=== PATIENT | male | born 1940 ===

== ENCOUNTER → 2020-03-11 | Outpatient (CLI) | payer OTHER, BC ==
[~2020-03-11] VITALS: Ht 170.2 cm; Wt 74.8 kg
[~2020-03-11] MED LIST: ALEVE220 MG PO; FISH OIL 1,001000 M2 PO; OMEPRAZOLE 20 M20 M1 PO; PRAVACHOL 20 MG20 M1 PO; STOOL SOFTENER1 EAC2 PO; TEMAZEPAM15 MG PO; VITAMIN C500 M2 PO
[2020-03-11 09:19] VITALS: BP 150/82
--- NOTE | 2020-03-11 09:48 | NUR ---
Pain Clinic Assessment: 1. History of Osteoarthritis: BACK History of Rheumatoid Arthritis: Not Applicable 2. Height: 5 ft. 7 in. 170.2 cm. Weight: 165.0 lb. oz. 74.844 kg. Patient's BMI: 25.8 3. Vital Signs: BP: 150/82 Pulse: 66 Resp: 14 Temp: 02 Sat: 100 ECG Mon: 4. Pain Intensity: 3 5. Fall Risk: Dizziness: N Needs help standing or walking: N Fallen in the last 3 months: N Fall risk comments: 6. Patient on Blood Thinner: None 7. History of Hypertension: N 8. Opioid Therapy greater than 6 weeks: N Opiate Contract Signed: 9. Risk Assessment Tool Provided: LOW RISK 0/3 10. Functional Assessment Tool: 11. Recreational Drug Use: Never Drug Type: Tobacco Use: Never Smoker Tobacco Type: Amount or Packs/day: How Many Years: Alcohol Use: Yes Frequency: Weekly Quant: 1
--- NOTE | 2020-03-19 11:46 | HPC ---
[facility] [address] [place] [address] PAIN MANAGEMENT CONSULTATION Name: LUDMILA FRAGOSO Room #: REG [facility] [id number] Admission: 03/11/20 Attend Phys: Ludmila Mcintosh DO Discharge: Date of : 41 Report #: [id number] THIS REPORT FOR: cc: DANYEL HYATT Physician not on staff Ludmila Mcintosh DO ~ DATE OF SERVICE: 03/11/2020 REFERRING PHYSICIAN: Dr. Cherry Hyatt. CHIEF COMPLAINT: Axial back pain. HISTORY OF PRESENT ILLNESS: As you know, the patient is a very pleasant 80-year-old male who reports he has had longstanding low back pain that has been present for about 5 years. He denies injury or trauma. He states the pain has progressively worsened. He has been seen by other pain physicians and has undergone multiple different treatment options. Most recent treatment was medial branch block, injections and progression towards radiofrequency lesioning. The patient reports good efficacy with the medial branch blocks, but no efficacy with the lumbar medial branch radiofrequency lesioning. He sought second opinion through his primary care physician who referred the patient to our clinic to discuss options for treatment. The patient indicates today pain is continuous, constant and rhythmic. He describes the pain as shooting, aching, pulling, sharp and stabbing, places current pain score at 3/10, daily average of 5/10, worst the pain has been is 8/10. The patient states that working on his lawn gardening and landscaping tends to exacerbate symptoms; sitting, resting, repositioning and sleeping improves pain. He has been referred to our service to discuss treatment options for axial back pain due to facet arthropathy. PAST MEDICAL HISTORY: 1. Asthma. 2. Osteoarthritis. 3. Prostate cancer, status post surgery. 4. Squamous cell carcinoma. PAST SURGICAL HISTORY: 1. Right shoulder surgery. 2. Prostatectomy. 3. Excision of squamous cell carcinoma. 4. Cataract surgeries, bilateral. 5. Radiofrequency lesioning of medial branch nerves of the lumbar spine. SOCIAL HISTORY: The patient denies tobacco, IV or illicit drug use. Admits to [address] [address] PAIN MANAGEMENT CONSULTATION Name: LUDMILA FRAGOSO Room #: REG Narayan Hernandez.#: [id number] Admission: 03/11/20 Attend Phys: Ludmila Mcintosh DO Discharge: Date of : 41 Report #: [id number] occasional alcohol beverage. He is retired, he retired in 2002. He is not receiving workmen's compensation nor is he trying to obtain disability benefits. He is not in litigation in regards to pain. He is accompanied by his significant other present in room today. REVIEW OF SYSTEMS: Positive for hearing loss with tinnitus, asthma, nocturia, chronic axial back pain. All other review of systems negative per 12-point review of systems other than those listed in history of present illness. Pain impact score 25/70 indicating [id number] interference of daily activities secondary to pain. ALLERGIES: PENICILLIN. CURRENT MEDICATIONS: Naproxen 220 mg 1 tab p.r.n., Senokot S 1 tab per day, omega-3 fish oil 1 tab per day, ascorbic acid 500 mg per day, temazepam 15 mg p.o. at bedtime, pravastatin 20 mg per day, omeprazole 20 mg per day. IMAGING: None available. PQRS: The patient has osteoarthritic changes of the lumbar spine. No rheumatoid arthritis. He is placing current pain score at 2/10. He is not a fall risk nor has he had a fall in last 3 months. He is not on blood thinners. He is not treated for hypertension. He is not on chronic opioids and has a low opiate addiction potential. Pain impact score is 25/70, [id number] interference of daily activities secondary to pain. PHYSICAL EXAMINATION: VITAL SIGNS: Blood pressure 150/82, pulse 64, respiratory rate 18 and unlabored. The patient is 99% on room air. Height 5 feet 7 inches tall, weight 171.4 pounds, BMI calculated at 26.8. GENERAL: Well-developed, well-nourished, well-hydrated 80-year-old male, appears stated age. Current pain score is rated around 2/10. HEENT: Normocephalic, atraumatic. Pupils equal, round and reactive. Extraocular muscles are intact. Speech is fluent. LUNGS: Clear. No wheeze, rhonchi or rales. CARDIOVASCULAR: Regular. No appreciable gallop, no rub. ABDOMEN: Soft, nontender, nondistended. Normoactive bowel sounds. EXTREMITIES: Show no clubbing, no cyanosis, no edema. MUSCULOSKELETAL: Lower extremity strength equal and symmetrical, 5/5. Intact to light touch from L1 through S2 dermatomes. Seated straight leg raising negative. Supine straight leg raising negative. Lilli's test is negative. Modified Gaenslen's positive for axial low back pain. Ankle clonus negative. Babinski is negative. Deep tendon reflexes 2+/4 at patella and Achilles. Lumbar provocation testing including extension, rotation, lateral flexion all intensify axial back pain. No radiation of symptoms. [facility] [address] [place] [address] PAIN MANAGEMENT CONSULTATION Name: LUDMILA FRAGOSO Room #: REG AD[facility]EL Merrill#: [id number] Admission: 03/11/20 Attend Phys: Ludmila KuldipPerry Mcintosh DO Discharge: Date of : 41 Report #: [id number] ASSESSMENT: 1. Lumbosacral spondylosis without radiculopathy. 2. Facet arthropathy of the lumbar spine. 3. Chronic low back pain. 4. Chronic intractable pain. PLAN: 1. Based on today's physical exam and history the patient has provided, the descriptors the patient uses in regards to pain as well as the location of symptoms, likely source of the patient's pain is the facet joints of the lumbar spine. The patient and I discussed the findings of physical exam with him today. It does appear symptoms are related, specifically to the facet joints. There is no radicular component to his symptoms, not in the physical exam nor in the descriptors he uses in regards to pain. Unfortunately, I do not have imaging available, so I cannot comment to the level of arthropathy that is present, but given his age and the intensity of symptoms, it would at least be moderate to possibly moderate severe. The following was discussed with the patient for treatment options. 1. We discussed physical therapy, stretching exercises along with core strengthening techniques to improve axial back pain issues. We discussed adjustments in medication management to treat his ongoing symptoms. We discussed intra-articular facet injections, medial branch nerve blocks and radiofrequency lesioning as treatment course. We also discussed surgical options with the patient. After reviewing the risks and benefits of all proposed treatment options, the patient chose to move forward with adjustments in medication management and to trial medial branch blocks. 2. The patient will adjust his nabumetone treatment. I recommend he take 2 tabs twice a day to determine if his symptoms will improve. I believe that he will see good efficacy with this adjustment. If he is suffering from just strictly facet arthropathy pain, he will note no significant changes if there is any underlying neuropathic component. The patient is agreeable and we will adjust his nonsteroidal anti-inflammatories. 3. We will schedule the patient back to our clinic next week to undergo medial branch blocks of the bilateral L3, L4, L5 medial branch nerves. This will determine whether or not they are the sources of the patient's symptoms. I am aware that the patient has undergone medial branch blocks in the past with good efficacy and ultimately underwent radiofrequency lesioning of the lumbar spine, but this was done under sedation, the patient was unable to answer questions and I believe may not have provided the benefit believed as this is not the standard treatment protocol for radiofrequency lesioning. The patient should be awake, alert and oriented, so that they can answer questions appropriately as we are trying to signal the nerves and make sure that we are gaining the most efficacious benefits. The patient is agreeable to undergo medial branch blocks at our next visit with the plan that we may ultimately need to redo the [address] [address] PAIN MANAGEMENT CONSULTATION Name: LUDMILA FRAGOSO Room #: REG CLNarayan Merrill#: [id number] Admission: 03/11/20 Attend Phys: Ludmila Mcintosh DO Discharge: Date of : 41 Report #: [id number] radiofrequency lesioning. 4. We have made the patient an appointment next week to undergo the radiofrequency lesioning. We will keep you apprised of response to treatment as well as his response to the anti-inflammatory medications. 5. We wish to thank the referring physician, Dr. Hyatt, for the opportunity to see the patient in consultation. We will keep you apprised of his response to treatment as we address facet arthropathy pain. Again, we wish to thank you for the opportunity to see the patient in consultation. <ELECTRONICALLY SIGNED> By: Ludmila Mcintosh DO 03/19/20 [id number] Ludmila Mcintosh DO /nt
== END ==
LOC: PAIN 06:48
PROVIDERS: ATTEND Anesthesiology Pain Medicine
DX: M47.816 Spondylosis without myelopathy or radiculopathy, lumbar region (principal); Z79.899 Other long term (current) drug therapy

== ENCOUNTER → 2020-03-18 | Outpatient (CLI) | payer OTHER, BC ==
[~2020-03-18] VITALS: Ht 170.2 cm; Wt 77.7 kg
--- NOTE | ~2020-03-18 | HPC ---
[facility] [place] [address] PAIN MANAGEMENT CONSULTATION Name: LUDMILA FRAGOSO [facility] [id number] Admission: 03/18/20 Attend Phys: Ludmila Mcintosh DO Discharge: Date of : 42 Report #: [id number] THIS REPORT FOR: cc: DANYEL HYATT Physician not on staff Ludmila Mcintosh DO ~ CC: Cherry Mcintosh Physician staff DATE OF SERVICE: 03/18/2020 REFERRING PHYSICIAN: Dr. Cherry Hyatt. CHIEF COMPLAINT: Axial back pain. HISTORY OF PRESENT ILLNESS: As you know, the patient is a very pleasant 80-year-old male who has returned today in followup visit to undergo medial branch blocks to address the L3, L4, L5 medial branch nerves respectively in the lower lumbar spine. The patient apparently has had good efficacy with previous medial branch nerve blocks, but ultimately underwent radiofrequency lesioning without benefit. The patient was performed the procedure while sedated and the patient has no recollection of the procedure itself, which is not the standard of care. He subsequently was referred to our clinic where he was diagnosed with lumbar facet arthropathy and established today's appointment to undergo bilateral L3, L4, L5 medial branch nerve blocks. If this is successful, then move forward with radiofrequency lesioning using a standard of care. He returns today in followup visit to undergo medial branch nerve blocks bilaterally. He is placing his pain at 2/10 to 3/10. ALLERGIES: PENICILLIN. CURRENT MEDICATIONS: Senokot, naproxen, omega-3 fish oil, ascorbic acid, temazepam, pravastatin, omeprazole. SOCIAL HISTORY: The patient denies tobacco, alcohol, IV or illicit drug use. He is retired, retired in 2002. Unaccompanied today. IMAGING: No new imaging available. PQRS: The patient has known arthritic changes of the lumbar spine. No rheumatoid arthritis. Pain today is rated anywhere from 2/10 to 3/10. He is not a fall risk nor has he had a fall in last 3 months. He is not on blood thinners, nor is he treated for hypertension. He is not on chronic opioid. He has a low opiate addiction potential. Pain impact 25/70, [id number] [facility] [address] [place] [address] PAIN MANAGEMENT CONSULTATION Name: RICHMONDLUDMILA Room #: REG [facility]#: [id number] Admission: 03/18/20 Attend Phys: Ludmila Mcintosh DO Discharge: Date of : 41 Report #: [id number] interference of daily activities secondary to pain. PHYSICAL EXAMINATION: VITAL SIGNS: Blood pressure 155/75, pulse is 60, respiratory rate 18 and unlabored. The patient is 100% on room air. GENERAL: Well-developed, well-nourished, well-hydrated 80-year-old male, appears stated age, pain is rated today 2/10 to 3/10. HEENT: Normocephalic, atraumatic. Pupils equal, round and reactive. EXTREMITIES: Show no clubbing, no cyanosis, and no edema. MUSCULOSKELETAL: Lower extremity strength equal and symmetrical 5/5, intact to light touch from L1 through S2 dermatomes. Lumbar provocation testing met with increasing pain. This is noted with extension and lateral flexion as well as rotation. ASSESSMENT: 1. 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 2. Facet arthropathy of the lumbar spine. 3. Chronic low back pain. 4. Chronic intractable pain. PLAN: 1. The patient has returned today in followup visit having prepared to undergo bilateral L3, L4, L5 medial branch nerve blocks to determine if the source of his pain continues to be the medial branch blocks of the lumbar spine. The patient has agreed to undergo the procedure to determine if his symptoms can be alleviated with more aggressive treatment options. He returns today to undergo the procedure. He has been advised risks and benefits, states understood and wished to proceed. 2. No medication changes provided at today's visit. The patient will continue current medical therapy as previously prescribed. 3. We will see the patient back in followup visit for possible radiofrequency lesioning based on efficacy with today's procedure. PROCEDURE NOTE: Bilateral L3, L4, L5 medial branch nerve blocks under fluoroscopic guidance. This is the first of 2 diagnostic medial branch blocks on the right and left sides that the patient is undergoing. After obtaining written consent, the patient was taken back to the fluoroscopy suite and placed in a prone position on the fluoroscopy table with a pillow under the abdomen to decrease the lumbar lordosis. The skin overlying the lumbosacral area was prepped and draped in an aseptic fashion. The L4 transverse process corresponding the L3 medial branch nerve, L5 transverse process corresponding the L4 medial branch nerve on the right and left sides was visualized under AP fluoroscopy. The skin and subcutaneous tissue overlying the [address] [address] PAIN MANAGEMENT CONSULTATION Name: LUDMILA FRAGOSO Room #: REG AD[facility] Merrill#: [id number] Admission: 03/18/20 Attend Phys: Ludmila Mcintosh, DO Discharge: Date of : 41 Report #: [id number] target site(s) of injection was anesthetized using 2 mL of 1% lidocaine. A 22-gauge 3-1/2 inch spinal needle with a bent tip was advanced under fluoroscopic guidance using a superior to inferior and lateral to medial approach to the dorsal, superior and medial aspect of the base of the transverse process(es). The needles were then directed ventral, medial and caudad to reach the target location(s). An oblique view facilitated needle placement with properly positioned needles(s) in the middle of the "eye" of the Alex dog for the medial branch block(s). At each site the needle(s) rested on periosteum. After negative aspiration for heme or CSF, 0 mL of Omnipaque dye was injected at each site under live fluoroscopy, demonstrating absence of vascular uptake. After negative aspiration for heme or CSF, 0.5 mL of bupivacaine 0.5% was slowly injected at each site to avoid forcing the solution away from the target points(s). The needle(s) were then removed. The L5 dorsal ramus block on the right and left sides was performed using a slightly oblique approach under fluoroscopic guidance, placing the needle within the groove between the sacral site and the superior articular process of S1. The needle rested on periosteum. After negative aspiration for heme or CSF, 0.0 mL of Omnipaque dye was injected at under live fluoroscopy, demonstrating absence of vascular uptake. After negative aspiration for heme or CSF, 0.5 mL of bupivacaine 0.5% was slowly injected to avoid forcing the solution away from the target point. The needle was then removed. Sterile bandages were placed over the injection site. There were no apparent complications. The patient tolerated the procedure well and was carefully escorted to the recovery room in stable condition. The VAS was 2/10 to 3/10 before the procedure and 0/10 at 10 minutes after the procedure. After meeting discharge criteria, the patient was discharged home. By: [id number] Ludmila Mcintosh DO /nt
[2020-03-18 07:58] VITALS: BP 150/82
--- NOTE | 2020-03-18 08:04 | NUR ---
Pain Clinic Assessment: 1. History of Osteoarthritis: BACK History of Rheumatoid Arthritis: Not Applicable 2. Height: 5 ft. 7 in. 170.2 cm. Weight: 171.4 lb. oz. 77.747 kg. Patient's BMI: 26.8 3. Vital Signs: BP: 150/82 Pulse: 64 Resp: 18 Temp: 02 Sat: 99 ECG Mon: 4. Pain Intensity: 2 5. Fall Risk: Dizziness: N Needs help standing or walking: N Fallen in the last 3 months: N Fall risk comments: 6. Patient on Blood Thinner: None 7. History of Hypertension: N 8. Opioid Therapy greater than 6 weeks: N Opiate Contract Signed: 9. Risk Assessment Tool Provided: LOW RISK 0/3 10. Functional Assessment Tool: 11. Recreational Drug Use: Never Drug Type: Tobacco Use: Never Smoker Tobacco Type: Amount or Packs/day: How Many Years: Alcohol Use: Yes Frequency: Quant:
== END | disposition home or self-care (01) ==
LOC: PAIN 06:47
PROVIDERS: ATTEND Anesthesiology Pain Medicine
DX: M47.816 Spondylosis without myelopathy or radiculopathy, lumbar region (principal); M47.817 Spondylosis without myelopathy or radiculopathy, lumbosacral region; M54.5 Low back pain; G89.29 Other chronic pain; Z98.890 Other specified postprocedural states; Z79.899 Other long term (current) drug therapy; Z88.0 Allergy status to penicillin

== ENCOUNTER → 2020-03-26 | Outpatient (CLI) | payer OTHER, BC ==
[~2020-03-26] VITALS: Ht 165.1 cm; Wt 75.3 kg
--- NOTE | ~2020-03-26 | HPC ---
[facility] [place] [address] PAIN MANAGEMENT CONSULTATION Name: LUDMILA FRAGOSO [id number] Admission: 03/26/20 Attend Phys: Ludmila Mcintosh DO Discharge: Date of : 42 Report #: [id number] THIS REPORT FOR: cc: ROSETTA HYATT Physician not on staff Ludmila Mcintosh DO ~ CC: ROSETTA Mcintosh Physician staff DATE OF SERVICE: 03/26/2020 CHIEF COMPLAINT: Axial back pain. HISTORY OF PRESENT ILLNESS: As you know, the patient is a very pleasant 80-year-old male returning in followup visit to undergo right L3, L4, L5 radiofrequency lesioning of the medial branch nerves of the lumbar spine. He did very well with previous medial branch blocks with 100% improvement in overall pain. He returns today in followup visit to begin the radiofrequency lesioning process. He is placing pain today at a level of 6/10. He describes the pain as shooting, aching, pulling, stabbing. Pain is exacerbated with standing and walking, improves with sitting and rest as well as the previous medial branch nerve blocks. The patient denies any new injury or trauma. ALLERGIES: PENICILLIN. CURRENT MEDICATIONS: Senokot S, omega-3 fish oil, ascorbic acid, temazepam, pravastatin, and omeprazole. SOCIAL HISTORY: The patient denies tobacco, alcohol, IV or illicit drug use. He is retired, retired years ago, unaccompanied at today's visit. IMAGING: No new imaging available. PQRS: The patient has arthritic changes of the lumbar spine. No rheumatoid arthritis. He is placing pain intensity today at 6/10. He is not a fall risk, has not had a fall in the last 3 months. He is not on blood thinners nor is he treated for hypertension. He is not on chronic opioids and has a low opioid addiction potential. Pain impact today 25/70, [id number] interference of daily activities secondary to pain. PHYSICAL EXAMINATION: VITAL SIGNS: Blood pressure 137/85, pulse 71, respiratory rate 16 and unlabored. The patient is 97% on room air. Height 5 feet 5 inches tall, weight is 166 pounds, BMI calculated at 27.6. [facility] [address] [place] [address] PAIN MANAGEMENT CONSULTATION Name: LUDMILA FRAGOSO Room #: REG [facility].#: [id number] Admission: 03/26/20 Attend Phys: Ludmila Mcintosh DO Discharge: Date of : 41 Report #: [id number] GENERAL: Well-developed, well-nourished, well-hydrated 80-year-old male, appearing stated age. Pain is rated today at 6/10. HEENT: Normocephalic, atraumatic. Pupils are equal, round and reactive. Speech is fluent. EXTREMITIES: Show no clubbing, no cyanosis, no edema. MUSCULOSKELETAL: Seated straight leg raising negative. Supine straight leg raising negative. Lilli's test is negative. Modified Gaenslen's positive for axial low back pain. Lower extremity strength is 5/5, intact to light touch from L1 through S2 dermatomes. ASSESSMENT: 1. 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 2. Facet arthropathy of the lumbar spine. 3. Lumbar degeneration. 4. Chronic intractable pain. PLAN: 1. The patient returns today in followup visit to begin the radiofrequency lesioning process. He has chosen to undergo right L3, L4, L5 radiofrequency lesioning today. As you are aware, the patient received excellent benefit with the medial branch blocks provided at our last visit, reporting near 100% improvement in overall pain. He returns today in followup visit to undergo the radiofrequency lesioning to address his 6/10 pain. The patient has been advised the risks and benefits of the procedure, states understood and wished to proceed. 2. We will plan to see the patient back in followup visit on 04/08/2020 to undergo left L3, L4, L5 medial branch radiofrequency lesioning. At that time, we will review the efficacy of the radiofrequency lesioning today. PROCEDURE NOTE: DESCRIPTION OF PROCEDURE: Right L3, L4, L5 lumbar medial branch radiofrequency ablations under fluoroscopic guidance. The procedure was explained. Informed consent was obtained from the patient. The patient was informed of the risks of the procedure including infection, bleeding, nerve damage, failure to produce pain relief and postoperative discomfort lasting for several weeks. The patient was then taken back to fluoroscopy suite, placed in prone position with pillow under abdomen to decrease lumbar lordosis. Skin overlying lumbosacral area was then prepped and draped in aseptic fashion. AP imaging of the lumbar spine was used to identify the L2 through L5 vertebral bodies and the sacral ala. The target locations of the right side of the L4 transverse process corresponding to the L3 medial branch nerve and the L5 transverse process corresponding to the L4 medial branch nerve were established. Using a 25-gauge [address] [address] PAIN MANAGEMENT CONSULTATION Name: LUDMILA FRAGOSO Room #: REG [facility]ill#: [id number] Admission: 03/26/20 Attend Phys: Ludmila Mcintosh DO Discharge: Date of : 41 Report #: [id number] 1-1/4 inch needle, skin wheals were placed at the junction of the transverse process and the respective superior articular process using 1 mL of 1% preservative-free lidocaine at each site. We were careful to only anesthetize skin and not the deep tissue. The radiofrequency lesioning needles were then advanced under fluoroscopic guidance using a superior and inferior lateral to medial approach to the dorsal superior and medial aspect of the base of the transverse processes. [place] were then directed caudally to reach the target location. An oblique view facilitated needle placement with properly positioned needles within the middle of the "eye" of the Alex dog. At each site, needles rested on periosteum. Touching bone assured the needles were not placed too deeply. Radiofrequency lesioning of the L5 medial branch nerve on the right side was performed using a superior to inferior, lateral to medial approach under fluoroscopic guidance, placing the needle within the groove between the sacral ala and the superior articular process of S1. Needle rested on periosteum. Stimulation was performed at each level once the cannulas were in position. Sensory stimulation was performed at 0.4, 0.4 and 0.4 with impedance of 193, 234 and 163 at 50 Hz for the L3, L4, L5 medial branch nerves respectively. Good stimulation of the lumbar and buttock region was elicited indicating correct alignment with the posterior primary ramus. Absence of lower motor fasciculation was noted at 3 volts 2 Hz stimulation when testing the L3, L4, L5 medial branch nerves on the right respectively. Following this affirmation of disassociation between sensory and motor stimulation, negative aspiration was noted at each level. After negative aspiration was noted, 1 mL of bupivacaine 0.5% was injected at each site. After a 90-second delay, lesions were performed at temperature of 80 degrees Celsius for a total of 90 seconds. After the needle tips had cooled, 1 mL of a solution containing 1 mL 40 mg per mL, 40 mg total triamcinolone along with 5 mL bupivacaine 0.5% injected at each site. Chatom were retracted longterm, flushed with 1 mL of 1% lidocaine and removed. Sterile bandage was placed over injection site. The patient was noted to be able to move all 4 extremities purposefully after procedure. The patient tolerated the procedure well, carefully escorted to recovery room in stable condition. No apparent complications. After meeting discharge criteria, the patient was discharged home. By: [id number] Ludmila Mcintosh DO /nt
[2020-03-26 12:35] VITALS: BP 137/85
--- NOTE | 2020-03-26 12:44 | NUR ---
Pain Clinic Assessment: 1. History of Osteoarthritis: BACK History of Rheumatoid Arthritis: Not Applicable 2. Height: 5 ft. 5 in. 165.1 cm. Weight: 166.0 lb. oz. 75.297 kg. Patient's BMI: 27.6 3. Vital Signs: BP: 137/85 Pulse: 71 Resp: 16 Temp: 02 Sat: 97 ECG Mon: 4. Pain Intensity: 6 5. Fall Risk: Dizziness: N Needs help standing or walking: N Fallen in the last 3 months: N Fall risk comments: 6. Patient on Blood Thinner: None 7. History of Hypertension: N 8. Opioid Therapy greater than 6 weeks: N Opiate Contract Signed: 9. Risk Assessment Tool Provided: LOW RISK 0 10. Functional Assessment Tool: 11. Recreational Drug Use: Never Drug Type: Tobacco Use: Never Smoker Tobacco Type: Amount or Packs/day: How Many Years: Alcohol Use: Yes Frequency: Quant:
== END | disposition home or self-care (01) ==
LOC: PAIN 07:06
PROVIDERS: ATTEND Anesthesiology Pain Medicine
DX: M47.817 Spondylosis without myelopathy or radiculopathy, lumbosacral region (principal); M47.816 Spondylosis without myelopathy or radiculopathy, lumbar region; M51.36 Other intervertebral disc degeneration, lumbar region; G89.29 Other chronic pain; Z98.890 Other specified postprocedural states; Z79.899 Other long term (current) drug therapy; Z88.0 Allergy status to penicillin

== ENCOUNTER → 2020-04-08 | Outpatient (CLI) | payer OTHER, BC ==
[~2020-04-08] VITALS: Ht 165.1 cm; Wt 75.1 kg
--- NOTE | ~2020-04-08 | HPC ---
[address] [address] PAIN MANAGEMENT CONSULTATION Name: LUDMILA FRAGOSO Room #: REG [facility].#: [id number] Admission: 04/08/20 Attend Phys: Ludmila Mcintosh DO Discharge: Date of : 41 Report #: [id number] THIS REPORT FOR: cc: ROSETTA HYATT Physician not on staff Ludmila Mcintosh DO ~ CC: ROSETTA Mcintosh Physician staff DATE OF SERVICE: 04/08/2020 REFERRING PHYSICIAN: Dr. Cherry Hyatt. CHIEF COMPLAINT: Axial back pain. HISTORY OF PRESENT ILLNESS: As you know, the patient is a very pleasant 80-year-old male who returns today in followup visit having noted excellent improvement in his lumbar pain after undergoing radiofrequency lesioning of the right L3, L4 and L5 medial branch nerves. He is now placing pain score no greater than 2/10. He is extremely pleased with response to the radiofrequency lesioning performed on the right returning today to complete the series to undergo left L3, L4, and L5 radiofrequency lesioning to complete the process of radiofrequency lesioning of the medial branch nerves of the lower lumbar spine. The patient has had no changes in his medical history since our last visit. No new injury or trauma. His pain has improved significantly from 5/10 to now 1-2/10 maximum. ALLERGIES: PENICILLIN. CURRENT MEDICATIONS: Senokot-S, omega-3 fish oil, ascorbic acid, temazepam, pravastatin, and omeprazole. SOCIAL HISTORY: The patient denies tobacco, alcohol, IV or illicit drug use. He is retired, retired years ago, unaccompanied today. IMAGING: No new imaging available. PQRS: The patient has known arthritic changes of the lumbar spine. No rheumatoid arthritis. Pain intensity is now rated 1-2/10. He is not at fall risk, has not had a fall in last 3 months. He is not on blood thinners, nor is he treated for hypertension. He is not on chronic opioids, has a low opioid addiction potential. Pain impact today 25, [id number] interference of daily activities secondary to pain. PHYSICAL EXAMINATION: [facility] [address] [place] [address] PAIN MANAGEMENT CONSULTATION Name: LUDMILA FRAGOSO [facility] [id number] Admission: 04/08/20 Attend Phys: Ludmila Mcintosh DO Discharge: Date of : 41 Report #: [id number] VITAL SIGNS: Blood pressure 145/92, pulse is 51, respiratory rate 16 and unlabored. The patient is 100% on room air. Height 5 feet 5 inches tall, weight 165.6 pounds, BMI calculated 27.6. GENERAL: Well-developed, well-nourished, well-hydrated 80-year-old male appearing stated age, pain is rated of 1-2/10. HEENT: Normocephalic and atraumatic. Pupils are equal, round and reactive. Speech is fluent. EXTREMITIES: Show no clubbing, no cyanosis, no edema. MUSCULOSKELETAL: Lower extremity strength remains symmetrical 5/5. Muscle bulk and tone is symmetrical comparing left lower extremity to right. He is intact to light touch from L1 through S2 dermatomes. Lumbar provocation testing including extension, rotation, lateral flexion all provided only minimal pain over the left low back. No pain over the right. ASSESSMENT: 1. Lumbosacral spondylosis without radiculopathy. 2. Facet arthropathy of the lumbar spine. 3. Chronic low back pain. 4. Chronic intractable pain. PLAN: 1. The patient returns today in followup visit to complete radiofrequency lesioning of the medial branch nerves of the lumbar spine. He has reported excellent benefit with previous series addressing the right L3, L4, and L5 medial branch nerves. He returns today to undergo left L3, L4, and L5 radiofrequency lesioning. He has been advised risks and benefits of the procedure, states understood and wished to proceed. 2. No medication changes made at today's visit. The patient will continue current medical therapy as previously prescribed. 3. We will see the patient back in followup visit on an as needed basis. We are hopeful the patient will see good and prolonged benefit with the radiofrequency lesioning procedures provided over the past 2 weeks. DESCRIPTION OF PROCEDURE: Left L3, L4, L5 radiofrequency lesioning of medial branch nerves of the lumbar spine under fluoroscopic guidance. The procedure was explained. Informed consent was obtained from the patient. The patient was informed of the risks of the procedure including infection, bleeding, nerve damage, failure to produce pain relief and postoperative discomfort lasting for several weeks. The patient was then taken to the fluoroscopy suite, placed in prone position with pillow under abdomen to decrease lumbar lordosis. Skin overlying lumbosacral area was then prepped and draped in aseptic fashion. AP imaging of the lumbar spine was used to identify the L2 through L5 vertebral bodies and the sacral ala. The target locations on the left side of the L4 transverse process corresponding the L3 medial branch nerve and the L5 transverse process corresponding the L4 medial branch nerve [address] [address] PAIN MANAGEMENT CONSULTATION Name: LUDMILA FRAGOSO Room #: REG [facility]#: [id number] Admission: 04/08/20 Attend Phys: Ludmila KuldipPerry ArnaldoDO Discharge: Date of : 41 Report #: [id number] were established. Using a 25-gauge 1-1/4 inch needle, skin wheals were placed at the junction of the transverse process and the respective superior articular process using 1 mL of 1% preservative-free lidocaine. We were careful to only anesthetize the skin and not the deep tissue. The radiofrequency lesioning needles were then advanced under fluoroscopic guidance using a superior, inferior, lateral to medial approach to the dorsal superior and medial aspect of the base of transverse processes. Phillips were then directed caudad to reach their target locations. Oblique view facilitated needle placement with properly positioned needles within the middle of the "eye" of the Alex dog. At each site, needles rested on periosteum. Touching bone initially assured the needles were not placed too deeply. Radiofrequency lesioning of the L5 medial branch nerve on the left was performed using a superior to inferior and lateral to medial approach under fluoroscopic guidance. We placed the needle within the groove between the sacral ala and the superior articular process of S1. Needle rested on periosteum. Stimulation was performed at each level once the cannulas were in position. Sensory stimulation was performed at 0.3, 0.3 and 0.6 with impedance of 254, 270, 282 at 50 Hz for the L3, L4, and L5 medial branches respectively. Good stimulation of the lumbar buttock region was elicited indicating correct alignment with the posterior primary ramus. Absence of lower motor fasciculation was noted at 3 volts 2 Hz stimulation during testing of the left L3, L4, and L5 medial branches respectively. Following this, affirmation of disassociation between sensory and motor stimulation, negative aspiration was noted at all levels. After negative aspiration for heme, 1 mL of bupivacaine 0.5% was injected at each site. After a 90-second delay, lesions were performed at temperature of 80 degrees Celsius for a total of 90 seconds. After the needle tips cooled, 1 mL of solution containing 1 mL 40 mg per mL, 40 mg total triamcinolone along with 3 mL of bupivacaine 0.5% injected slowly. Needle was then retracted approximately half way, flushed with 1 mL of 1% lidocaine and removed. Sterile bandage placed over injection site. The patient was able to move purposefully all 4 extremities after procedure. The patient tolerated the procedure well, carefully escorted to recovery room in stable condition. No apparent complications. After meeting our discharge criteria, the patient was then discharged home. By: [id number] Ludmila Mcintosh DO /nt
[2020-04-08 08:53] VITALS: BP 145/83
--- NOTE | 2020-04-08 08:58 | NUR ---
Pain Clinic Assessment: 1. History of Osteoarthritis: BACK History of Rheumatoid Arthritis: Not Applicable 2. Height: 5 ft. 5 in. 165.1 cm. Weight: 165.6 lb. oz. 75.116 kg. Patient's BMI: 27.6 3. Vital Signs: BP: 145/83 Pulse: 57 Resp: 18 Temp: 02 Sat: 100 ECG Mon: 4. Pain Intensity: 1-2 5. Fall Risk: Dizziness: N Needs help standing or walking: N Fallen in the last 3 months: N Fall risk comments: 6. Patient on Blood Thinner: None 7. History of Hypertension: N 8. Opioid Therapy greater than 6 weeks: N Opiate Contract Signed: 9. Risk Assessment Tool Provided: LOW RISK 0 10. Functional Assessment Tool: 11. Recreational Drug Use: Never Drug Type: Tobacco Use: Never Smoker Tobacco Type: Amount or Packs/day: How Many Years: Alcohol Use: Yes Frequency: Quant:
== END | disposition home or self-care (01) ==
LOC: PAIN 06:46
PROVIDERS: ATTEND Anesthesiology Pain Medicine
DX: M47.817 Spondylosis without myelopathy or radiculopathy, lumbosacral region (principal); G89.29 Other chronic pain; Z88.0 Allergy status to penicillin; Z79.899 Other long term (current) drug therapy

== ENCOUNTER → 2020-05-13 | Outpatient (CLI) | payer OTHER, BC ==
[~2020-05-13] VITALS: Ht 170.2 cm; Wt 75.0 kg
[2020-05-13 09:31] VITALS: BP 150/76
--- NOTE | 2020-05-13 09:40 | NUR ---
Pain Clinic Assessment: 1. History of Osteoarthritis: BACK History of Rheumatoid Arthritis: Not Applicable 2. Height: 5 ft. 7 in. 170.2 cm. Weight: 165.4 lb. oz. 75.025 kg. Patient's BMI: 25.9 3. Vital Signs: BP: 150/76 Pulse: 61 Resp: 18 Temp: 02 Sat: 100 ECG Mon: 4. Pain Intensity: 3 5. Fall Risk: Dizziness: N Needs help standing or walking: N Fallen in the last 3 months: N Fall risk comments: 6. Patient on Blood Thinner: None 7. History of Hypertension: N 8. Opioid Therapy greater than 6 weeks: N Opiate Contract Signed: 9. Risk Assessment Tool Provided: LOW RISK 0 10. Functional Assessment Tool: 11. Recreational Drug Use: Never Drug Type: Tobacco Use: Never Smoker Tobacco Type: Amount or Packs/day: How Many Years: Alcohol Use: Yes Frequency: Quant:
--- NOTE | 2020-05-14 13:07 | HPC ---
[facility] [address] [place] [address] PAIN MANAGEMENT CONSULTATION Name: ULDMILA FRAGOSO Room #: REG [facility] MDash.#: [id number] Admission: 05/13/20 Attend Phys: Ludmila Mcintosh DO Discharge: Date of : 42 Report #: [id number] THIS REPORT FOR: cc: MAYCOL HYATT Physician not on staff Ludmila Mcintosh DO ~ DATE OF SERVICE: 05/13/2020 REFERRING PHYSICIAN: Maycol Hyatt MD CHIEF COMPLAINT: Left shoulder pain. HISTORY OF PRESENT ILLNESS: As you know, the patient is a very pleasant 80-year-old male who was originally referred first to our services for chronic axial back pain issues. He has completed radiofrequency lesioning of the medial branch nerves of the lumbar spine with greater than 50-60% improvement in overall pain, which is ongoing. He returns today in followup visit to discuss treatment options for left shoulder pain. The patient has a diagnosis of rotator cuff injury of the left shoulder and has undergone intra-articular shoulder injections in the past, but wishes to change his care to our services to try to consolidate his medical management. The patient reports today pain level of about 3/10. This is exacerbated with activity, improves with rest and relaxation. The patient has a restriction of motion of the left shoulder due to what appears to be a biceps tendon impingement, but also has a reported rotator cuff injury. He is referred himself back to our clinic to discuss options for treatment for left shoulder pain. ALLERGIES: PENICILLIN. CURRENT MEDICATIONS: Senokot-S, omega-3 fish oil, ascorbic acid, temazepam, pravastatin, omeprazole. SOCIAL HISTORY: The patient denies tobacco, alcohol, IV or illicit drug use. He is retired, retired years ago. He is unaccompanied at today's visit. IMAGING: No new imaging available. PQRS: The patient has known arthritic changes of the lumbar spine, mildly in the shoulders and mildly in the hips, no rheumatoid arthritis. He is placing pain intensity at 3/10. He is not a fall risk nor has he had a fall in last 3 months. He is not on blood thinners, nor is he treated for hypertension. He is not on chronic opioids, has a low opiate addiction potential. Pain impact of 25/70, [id number] interference of daily activities secondary to pain. IMAGING: There is no imaging [place] [id number] PAIN MANAGEMENT CONSULTATION Name: RICHMONDLUDMILA Room #: REG [facility] Merrill#: [id number] Admission: 05/13/20 Attend Phys: Ludmila Mcintosh DO Discharge: Date of : 42 Report #: [id number] PHYSICAL EXAMINATION: VITAL SIGNS: Blood pressure 150/76, pulse is 61, respiratory rate 18 and unlabored. The patient is 100% on room air. Height 5 feet 7 inches tall, weight 165.4 pounds, BMI calculated 25.9. GENERAL: Well-developed, well-nourished, well-hydrated 80-year-old male appearing stated age. He is placing his current pain score at 3/10. HEENT: Normocephalic, atraumatic. Pupils equal, round and reactive. EXTREMITIES: Show no clubbing, no cyanosis, no edema. MUSCULOSKELETAL: The patient does have some palpatory tenderness over the anterior and posterior portion of the shoulder. There is palpation directly over the biceps tendon as well. There is limitation of motion with shoulder abduction between the 30 degrees to 110 degree angle with pain intensity increase. He does have some signs and symptoms of rotator cuff injury with provocating testing of the left shoulder when compared to the right. Muscle bulk and tone is equal and symmetrical in upper extremities. No atrophy noted. ASSESSMENT: 1. Left shoulder pain. 2. Rotator cuff injury of the left shoulder. 3. Mild osteoarthritis of the left shoulder. PLAN: 1. Based on today's physical exam and history the patient provides, the description the patient uses in regards to pain as well as the provocating factors, it would appear the patient is suffering from mild rotator cuff injury and mild arthritic changes of the left shoulder. He has had a rotator cuff injury and repair of the right shoulder in the past with improvement in overall pain. He has been undergoing injections in the left shoulder on and off for years to address symptoms. He changed his care to our service to help consolidate his pain management routine. He made today's appointment to discuss intra-articular shoulder injection or other treatment options. After a very long discussion of treatment options, which would include the following: He chose to undergo injection. 2. For completeness sake, we did discuss with the patient options for treatment, which would include physical therapy, stretching exercises and strengthening techniques of the left shoulder. We discussed medication management, whether those medications to be topical or oral in their application would depend on efficacy. We discussed intra-articular shoulder injections and ultimately surgical repair. After reviewing the risks and benefits of all proposed treatment options, the patient chose to undergo intra-articular shoulder injection. 3. No medication changes made at today's visit. The patient will continue current medical therapy as prior prescribed. 4. We will see the patient back in followup visit on an as needed basis for possible next in the series of left intra-articular shoulder injections. We are [address] [address] PAIN MANAGEMENT CONSULTATION Name: LUDMILA FRAGOSO Room #: REG [facility]#: [id number] Admission: 05/13/20 Attend Phys: Ludmila Mcintosh DO Discharge: Date of : 42 Report #: [id number] hopeful the patient will see good and prolonged benefit with today's procedure. PROCEDURE NOTE DESCRIPTION OF PROCEDURE: Left intra-articular shoulder injection under fluoroscopic guidance. After obtaining written consent, the patient was taken back to fluoroscopy suite, placed in a supine position. The image intensifier/C-arm was brought into position over the left shoulder and AP imaging was obtained. The area overlying the injection site was then prepped and draped in aseptic fashion using chlorhexidine. A sterile marker was placed over the injection site. A 27-gauge 1-1/4 inch needle was then used to anesthetize skin and subcutaneous tissue with 1 mL of 1% lidocaine. A 25-gauge 2-inch needle was then advanced under fluoroscopic guidance towards the proximal head of the humerus under direct fluoroscopic imaging. Needle was advanced until reaching the proximal head of the humerus then retracted approximately 1 mm. After negative aspiration for heme, 0.5 mL of Omnipaque injected demonstrating an excellent left shoulder arthrogram. After negative aspiration for heme, 3 mL of a solution containing 1 mL 40 mg per mL, 40 mg total triamcinolone along with 2 mL bupivacaine 0.5% injected slowly. Needle retracted care home, flushed with 1 mL of 1% lidocaine, then removed. Sterile bandage placed over injection site. No new motor deficits present in the left upper extremity following procedure. The patient tolerated procedure well, carefully escorted to recovery room in stable condition. No apparent complications. After meeting discharge criteria, the patient discharged home. <ELECTRONICALLY SIGNED> By: Ludmila Mcintosh DO 05/14/20 1307 [id number] Ludmila Mcintosh DO /nt
== END | disposition home or self-care (01) ==
LOC: PAIN 06:47
PROVIDERS: ATTEND Anesthesiology Pain Medicine
DX: M25.512 Pain in left shoulder (principal); M19.012 Primary osteoarthritis, left shoulder; S46.002A Unspecified injury of muscle(s) and tendon(s) of the rotator cuff of left shoulder, initial encounter; Z98.890 Other specified postprocedural states; Z79.899 Other long term (current) drug therapy; Z88.0 Allergy status to penicillin; X58.XXXA Exposure to other specified factors, initial encounter; Y93.89 Activity, other specified; Y92.89 Other specified places as the place of occurrence of the external cause; Y99.8 Other external cause status